=== PATIENT | male | born 1935 | race Caucasian/White ===

== ENCOUNTER 2017-11-18 12:34 | Emergency (ER) | payer MEDICARE ==
[~2017-11-18] VITALS: Ht 182.9 cm; Wt 67.3 kg
[2017-11-18 12:34] VITALS: Ht 182.9 cm; Wt 67.3 kg
[2017-11-18] MEDS ORDERED: BAYER CHEWABLE81 MG PO (12:42)
[2017-11-18] MEDS ORDERED: COREG 3.1253.125 MG PO (12:43)
[2017-11-18] MEDS ORDERED: LISINOPRIL-HCTZ1 T11 PO (12:43)
[2017-11-18] MEDS ORDERED: FLOMAX0.4 MG PO (12:43)
[2017-11-18 13:29] LABS: BASOPHILS 0.2 % (0-2); EOSINOPHILS 5.9 % (0-7); HEMATOCRIT 41.6 % (42.0-54.0); HEMOGLOBIN 14.6 g/dL (13.5-17.5); IMMATURE GRANULOCYTES 0.2 % (0-5); LYMPHOCYTES 19.3 % (15-50); MCH 30.2 pg (26.0-34.0); MCHC 35.1 g/dL (31.0-37.0); MCV 86.1 fL (80.0-100.0); MEAN PLATELET VOLUME 9.7 fL (7.4-10.4); MONOCYTES 7.3 % (2-11); NEUTROPHILS 67.1 % (40-80); PLATELET COUNT 238 10x3/uL (130-400); RBC 4.83 10x6/uL (4.20-6.10); RDW 13.6 % (11.5-14.5); WBC 9.1 10x3/uL (4.8-10.8)
[2017-11-18 13:58] LABS: ALBUMIN 3.9 g/dL (3.4-5.0); ALKALINE PHOSPHATASE 121 U/L (46-116); ALT (SGPT) 26 U/L (10-68); BILIRUBIN - TOTAL 0.32 mg/dL (0.2-1.3); CALC OSMOLALITY 278 mosm/kg (275-300); CALCIUM 9.2 mg/dL (8.5-10.1); CARBON DIOXIDE 29.8 mmol/L (21.0-32.0); CHLORIDE - SERUM 99 mmol/L (98-107); GLUCOSE 109 mg/dL (74-106); POTASSIUM - SERUM 4.9 mmol/L (3.5-5.1); PROTEIN - SERUM 8.5 g/dL (6.4-8.2); SODIUM 135 mmol/L (136-145); UREA NITROGEN 35 mg/dL (7-18); eGFR NON AFRICAN AMERICAN 34 mL/min (90-120)
[2017-11-18 14:07] LABS: CKMB 0.4 U/L (0.0-3.6); CREATINE KINASE 40 UL (21-232); TROPONIN-I < 0.017 ng/mL (0.000-0.060)
[2017-11-18 14:14] LABS: D-DIMER-QUANTITATIVE 1.72 ug/mLFEU (0.20-0.54)
[2017-11-18 14:25] LABS: INR 1.1 (0.85-1.17); PROTIME 13.8 SECONDS (11.6-15.0)
[2017-11-19 03:54] VITALS: BP 154/79
== END 2017-11-18 19:18 | disposition home or self-care (01) ==
LOC: D.ER 12:34
PROVIDERS: Family Medicine
DX: R07.9 Chest pain, unspecified (principal); J44.9 Chronic obstructive pulmonary disease, unspecified; R11.0 Nausea; R61 Generalized hyperhidrosis; I10 Essential (primary) hypertension; F17.200 Nicotine dependence, unspecified, uncomplicated; I49.3 Ventricular premature depolarization

== ENCOUNTER → 2019-11-01 22:20 | Outpatient (CLI) | payer MEDICARE ==
[2017-11-18 12:34] VITALS: BMI 20.1
[~2019-11-01 22:20] MED LIST: BAYER CHEWABLE81 MG PO; COREG 3.1253.125 MG PO; FLOMAX0.4 MG PO; LISINOPRIL-HCTZ1 T11 PO
[2019-11-01 23:00] LABS: BASOPHILS 0.3 % (0-2); EOSINOPHILS 4.2 % (0-7); HEMATOCRIT 31.6 % (42.0-54.0); HEMOGLOBIN 9.9 g/dL (13.5-17.5); IMMATURE GRANULOCYTES 0.2 % (0-5); MCH 29.3 pg (26.0-34.0); MCHC 31.3 g/dL (31.0-37.0); MCV 93.5 fL (80.0-100.0); MEAN PLATELET VOLUME 9.5 fL (7.4-10.4); MONOCYTES 10.4 % (2-11); NEUTROPHILS 69.9 % (40-80); RBC 3.38 10x6/uL (4.20-6.10); RDW 15.3 % (11.5-14.5); WBC 11.5 10x3/uL (4.8-10.8)
[2019-11-01 23:03] LABS: PLATELET COUNT 385 10x3/uL (130-400)
== END | disposition home or self-care (01) ==
LOC: D.LABREF 22:20
PROVIDERS: ATTEND Family Medicine
DX: J43.9 Emphysema, unspecified (principal); D64.9 Anemia, unspecified; I10 Essential (primary) hypertension

== ENCOUNTER → 2019-11-12 18:03 | Outpatient (CLI) | payer MEDICARE ==
[2017-11-18 12:34] VITALS: BMI 20.1
[2019-11-12 18:27] LABS: BASOPHILS 0.4 % (0-2); EOSINOPHILS 6.4 % (0-7); HEMATOCRIT 34.1 % (42.0-54.0); HEMOGLOBIN 10.7 g/dL (13.5-17.5); IMMATURE GRANULOCYTES 0.2 % (0-5); LYMPHOCYTES 16.5 % (15-50); MCH 29.2 pg (26.0-34.0); MCHC 31.4 g/dL (31.0-37.0); MCV 92.9 fL (80.0-100.0); MEAN PLATELET VOLUME 9.8 fL (7.4-10.4); NEUTROPHILS 65.5 % (40-80); PLATELET COUNT 344 10x3/uL (130-400); RBC 3.67 10x6/uL (4.20-6.10); RDW 14.3 % (11.5-14.5); WBC 9.5 10x3/uL (4.8-10.8)
== END | disposition home or self-care (01) ==
LOC: D.LABREF 18:03
PROVIDERS: ATTEND Family Medicine
DX: D64.9 Anemia, unspecified (principal); E53.8 Deficiency of other specified B group vitamins; K63.4 Enteroptosis; E55.9 Vitamin D deficiency, unspecified

== ENCOUNTER → 2020-06-21 15:13 | Outpatient (CLI) | payer MEDICARE ==
[2017-11-18 12:34] VITALS: BMI 20.1
[2020-06-21 15:23] LABS: BASOPHILS 0.3 % (0-2); HEMATOCRIT 37.3 % (42.0-54.0); HEMOGLOBIN 12.2 g/dL (13.5-17.5); IMMATURE GRANULOCYTES 0.4 % (0-5); LYMPHOCYTE ABS# 2.21 10x3/uL (1.32-3.57); LYMPHOCYTES 20.8 % (15-50); MCH 28.3 pg (26.0-34.0); MCHC 32.7 g/dL (31.0-37.0); MCV 86.5 fL (80.0-100.0); MEAN PLATELET VOLUME 9.4 fL (7.4-10.4); NEUTROPHIL ABS# 6.97 10x3/uL (1.78-5.38); NEUTROPHILS 65.5 % (40-80); RBC 4.31 10x6/uL (4.20-6.10); RDW 14.1 % (11.5-14.5); WBC 10.6 10x3/uL (4.8-10.8)
[2020-06-21 15:44] LABS: ALBUMIN 3.2 g/dL (3.4-5.0); ANION GAP 15.2 mmol/L (8-16); BILIRUBIN - TOTAL 0.24 mg/dL (0.2-1.3); CALCIUM 9.7 mg/dL (8.5-10.1); CARBON DIOXIDE 23.2 mmol/L (21.0-32.0); CREATININE - SERUM 1.4 mg/dL (0.6-1.3); POTASSIUM - SERUM 4.4 mmol/L (3.5-5.1); PROTEIN - SERUM 8.2 g/dL (6.4-8.2)
[2020-06-21 16:00] LABS: PLATELET COUNT 449 10x3/uL (130-400)
== END | disposition home or self-care (01) ==
LOC: D.LABREF 15:13
PROVIDERS: ATTEND Family Medicine
DX: J18.9 Pneumonia, unspecified organism (principal); J43.9 Emphysema, unspecified; C44.02 Squamous cell carcinoma of skin of lip; F17.210 Nicotine dependence, cigarettes, uncomplicated